=== PATIENT | female | born 1990 | race Caucasian/White ===

== ENCOUNTER 2020-12-10 21:17 | Inpatient (IN) | payer OTHER, MEDICAID, SELFPAY ==
[2020-12-10 21:55] LABS: WBC Urine None Seen (0-5/HPF)
[2020-12-10 21:58] LABS: Appearance Urine UA CLOUDY; Color Urine UA RED; Glucose Urine UA NEGATIVE (Negative); Ketones Urine UA TRACE (NEGATIVE); Leukocyte Esterase Urine UA TRACE (NEGATIVE); Nitrite Urine UA NEGATIVE (Negative); Occult Blood Urine UA 3+ (Negative); Protein Urine UA 3+ (Negative); Specific Gravity Urine UA 1.025 (1.000-1.035); Urobilinogen Urine UA 0.2 E.U./dL (0.2)
[2020-12-10 22:09] LABS: RBC Urine >100/HPF (0-5/HPF); Squamous Epithelial Cell Urine >30 /HPF (0-5/HPF)
[2020-12-10 22:10] LABS: Bacteria Urine Many (>30)
[2020-12-10 22:12] LABS: Bilirubin Urine UA Negative (NEGATIVE); Ictotest Urine Negative (Negative)
[2020-12-10 22:13] LABS: Culture Indicated Urine Cult Not Indicated
[2020-12-10 22:27] LABS: UR Morphine/Opiate cutoff 300 Positive (Negative); Ur Creatinine Normal (Normal); Ur Specific Gravity Normal (Normal); Urine Amphetamines Positive (Negative); Urine Barbiturates Negative (Negative); Urine Benzodiazepines Negative (Negative); Urine Cocaine Negative (Negative); Urine MDMA Negative (Negative); Urine Methadone Negative (Negative); Urine Methamphetamines Positive (Negative); Urine Oxycodone Negative (Negative); Urine Phencyclidine Negative (Negative); Urine Tetrahydrocannabinol Negative (Negative); Urine Tricyclic Antidepressant Negative (Negative); Urine pH Normal (Normal)
--- NOTE | 2020-12-10 22:38 | DI.US.S_ITS ---
PROCEDURE: US OB >= 14 WEEKS FETUS INDICATIONS: bleeding OUTSIDE/PRIOR DATING DATA: Last menstrual period (LMP): 03/26/2020. LMP-based estimated date of delivery (MANDEEP): 12/31/2020. First dating scan (date and location): None TECHNIQUE: Real-time scanning was performed of the fetus, with image documentation and biometric measurements. COMPARISON: None. FINDINGS: General: A single living intrauterine gestation is present. Placenta: Placental position is posterior, without previa. Amniotic fluid index: 9.8 cm, normal range is 5-24 cm. heart rate: 139 Maternal cervical canal: 3.4 cm long. Evaluation is however limited given positioning. biometrics: Biparietal diameter: 8.35, 33 weeks 4 days, this corresponds to the 1st percentile. Head circumference: 30.72, 34 weeks 2 days Abdominal circumference: 30.36, 34 weeks 2 days, this corresponds to the 5th percentile. Femur length: 6.84, 35 weeks 1 day, this corresponds to the 9th percentile. Estimated gestational age from initial scan: not applicable. Composite gestational age from present scan: 34 weeks 2 days Estimated weight and percentile: 2436 g, 6th percentile Measurement variability for biometric dating: +/- 7 days from 14 weeks to 15 weeks 6 days gestation, +/- 10 days from 16 weeks to 21 weeks 6 days gestation, +/- 2 weeks from 22 weeks to 27 weeks 6 days gestation, +/- 3 weeks for 28 weeks gestation or later. weight reference: 4500 g or EFW >90/95% is considered macrosomia or large for gestational age. EFW <10% is small for gestational age. EFW 5% or less is considered intra-uterine growth restriction. Anatomic survey: Not performed IMPRESSION: Single live intrauterine gestation with heart rate of 139 beats per minute measuring 34 weeks 2 days by today's ultrasound compared to 37 weeks 0 days by LMP. Estimated weight of 2436 g corresponding to the 6 percentile. This is considered small for gestational age. The by pyramidal diameter however is measured at the 1st percentile with the abdominal circumference measures at the 5th percentile. Limited evaluation of the cervix. No significant discrepancy of preliminary report. Dictated by: Carmine Rodriguez D.O. on 12/11/2020 at 8:01 Approved by: Carmine Rodriguez D.O. on 12/11/2020 at 8:12
--- NOTE | 2020-12-10 22:41 | PM.OBHP.1 ---
OB HPI Date/Time Date of admission: 12/10/20 Date Patient Seen: 12/10/20 Time Patient Seen: 22:42 History of Present Condition Chief complaint: EVAL OF LABOR, SWELLING LEGS : 1 Para: 0 Estimated Date of Delivery: 12/31/20 Estimated Gestational Age (weeks): 37 Narrative: Mariela Singh is a 30 year old female presented for evaluation for swelling in her legs. Appears the patient is preeclamptic. Indications Indication for induction OB: medical complication (Preeclampsia) History of Present care: limited care and initiated at week # (13) Dating criteria: based on 1st trimester US only Obstetrical complications: none Narrative: IV drug use throughout Evaluation Evaluation Baseline heart rate: 125 Variability: Average (6-10) monitor accelerations: Present monitor decelerations: Absent Contraction Frequency (minutes): 3 Uterine Contraction Intensity: Mild Category of Tracing: Reactive Status: Category l Cervical dilation (cm): 0 Cervical effacement (%): 0 station: -3 Laboratory results: Laboratory Tests 12/10/20 12/10/20 21:45 21:45 Urine Color Red Urine Appearance Cloudy Urine pH 7.0 Ur Specific Robbins 1.025 Urine Protein 3+ H Urine Glucose (UA) Negative Urine Ketones Trace H Urine Occult Blood 3+ H Urine Nitrate Negative Urine Bilirubin Negative Ur Bilirubin Confirm Negative Urine Urobilinogen 0.2 Ur Leukocyte Esterase Trace H Urine RBC >100/hpf H Urine WBC None seen Ur Squamous Epith Cells >30 /hpf H Urine Bacteria Many (>30) H Ur Culture Indicated? Cult not indicated U Opiates 300ng/mL cut Positive H Ur Oxycodone Screen Negative Urine Methadone Screen Negative Ur Barbiturates Screen Negative U Tricyclic Antidepress Negative Ur Phencyclidine Scrn Negative Ur Amphetamines Screen Positive H U Methamphetamines Scrn Positive H Ur MDMA Scrn (Ecstasy) Negative U Benzodiazepines Scrn Negative Urine Cocaine Screen Negative U Marijuana (THC) Screen Negative COUNTS INCLUDE 234 BEDS AT THE [facility] Social History (Updated 12/10/20 @ 22:51 by Nancy Marquez MD) Smoking Status: Current every day smoker substance use type: marijuana, heroin, amphetamines and methamphetamine Meds Home Medications and Allergies Allergies Allergy/AdvReac Type Severity Reaction Status Date / Time No Known Allergies Allergy Uncoded 02/26/18 13:09 Review of Systems Review of Systems Narrative: Patient denies headaches, scotomata, epigastric pain. Good movement. Patient states she had some bleeding yesterday in the bathroom after straining for a bowel movement. She had more bleeding when she went to the bathroom today. She denies leakage of fluid. No GI concerns. No bladder concerns. Patient states she last did drugs several days ago. Exam Vital Signs (past 8 hours): Blood pressure 142/97, temperature 36.2?,P 97 Narrative Exam Narrative: HEENT exam normal mask not removed at this point, lungs are clear to auscultation percussion. Heart is regular rate and rhythm no S3-S4 murmurs. Abdomen is gravid, soft, nontender. Extremities with +1 edema and nontender. DTRs are brisk. Objective Imaging US - abdomen: My impression: 2700 g female fetus, KIMBERLY 9, no placenta previa or evidence of placental separation. Labs Labs: Laboratory Results - last 24 hr 12/10/20 12/10/20 21:45 21:45 Urine Color Red Urine Appearance Cloudy Urine pH 7.0 Ur Specific Robbins 1.025 Urine Protein 3+ H Urine Glucose (UA) Negative Urine Ketones Trace H Urine Occult Blood 3+ H Urine Nitrate Negative Urine Bilirubin Negative Ur Bilirubin Confirm Negative Urine Urobilinogen 0.2 Ur Leukocyte Esterase Trace H Urine RBC >100/hpf H Urine WBC None seen Ur Squamous Epith Cells >30 /hpf H Urine Bacteria Many (>30) H Ur Culture Indicated? Cult not indicated U Opiates 300ng/mL cut Positive H Ur Oxycodone Screen Negative Urine Methadone Screen Negative Ur Barbiturates Screen Negative U Tricyclic Antidepress Negative Ur Phencyclidine Scrn Negative Ur Amphetamines Screen Positive H U Methamphetamines Scrn Positive H Ur MDMA Scrn (Ecstasy) Negative U Benzodiazepines Scrn Negative Urine Cocaine Screen Negative U Marijuana (THC) Screen Negative Assessment and Plan Assessment and Plan Assessment and Plan narrative: 30-year-old G1 EDC 10/30 at 37 weeks with poor care with drug use throughout presents with preeclampsia. We do have records of a 13 week ultrasound confirming EDC. Will admit and begin induction. Monitor for need to start magnesium. Will start oral labetalol for increased blood pressure.
[2020-12-10 23:34] LABS: COVID19 -Nasal RAPID Negative (Negative)
[2020-12-11 00:01] LABS: Add Manual Diff / Slide Review NO; Basophils Absolute Auto 0 /uL (0-100); Basophils Percent Auto 0.4 % (0-2); Eosinophils Absolute Auto 0 /uL (0-450); Eosinophils Percent Auto 0.1 % (2-4); Hematocrit 31.3 % (36-46); Hemoglobin 10.2 g/dL (12.0-16.0); Lymphocytes Absolute Auto 1800 /uL (1100-4500); Lymphocytes Percent Auto 24.6 % (25-40); Mean Corpuscular HGB Conc 32.7 % (30-36); Mean Corpuscular Hemoglobin 27.7 PG (26-34); Mean Corpuscular Volume 84.9 fL (80-100); Monocytes Absolute Auto 500 /uL (0-900); Monocytes Percent Auto 6.1 % (3-14); Neutrophils Absolute Auto 5100 /uL (1500-7000); Neutrophils Percent Auto 68.8 % (50-75); Platelet Count 240 X10^3/uL (150-400); Red Blood Cell Count 3.69 X10^6/uL (4.0-5.2); Red Cell Distribution Width 14.3 % (11.6-14.8); White Blood Cell Count 7.5 X10^3/uL (4.5-11.0)
[2020-12-11 00:11] VITALS: BP 142/97
[2020-12-11 00:19] LABS: Aspartate Aminotransferase 42 IU/L (14-36); BUN Creatinine Ratio 22.5 (6-22); Blood Urea Nitrogen 20 mg/dL (7-17); Estimated Glomerular Filt Rate > 60.0 mL/min (>60)
[2020-12-11] MEDS: LABETALOL 100 MG TABLET PO ×4 (00:33→21:27)
[2020-12-11] MEDS: LACTATED RINGERS 1,000 ML 100 ML IV (00:34)
[2020-12-11] MEDS: miSOPROStoL 25 MCG TABLET VAG ×4 (00:34→22:00)
[2020-12-11] MEDS: PENICILLIN G POTASSIUM 5,000,000 UNIT in DEXTROSE 5% IN WATER 250 ML IV (00:35)
[2020-12-11 01:39] LABS: Strep Grp B PCR NEG for Grp B Strep
[2020-12-11 01:51] LABS: Hepatitis B Surface Antigen NEGATIVE s/c (NEGATIVE)
[2020-12-11 06:48] LABS: Add Manual Diff / Slide Review NO
[2020-12-11 09:07] VITALS: BP 129/77; PULSE 76
--- NOTE | 2020-12-11 10:14 | PM.OBPNLAB ---
Date/Time Date Patient Seen: 12/11/20 Time Patient Seen: 10:14 Pain Control Pain control: tolerating well Comments: Patient denies headaches, scotomata, epigastric pain. Pelvic Exam Dilation (cm): 0 Effacement (%): 50 station: -2 Amniotic membrane status: Intact Contractions Contractions on admission: irregular Monitor mode: External Contraction intensity: Mild Status status: Category l Monitor Accelerations: Present Monitor Decelerations: Absent Monitor Variability: Moderate Assessment and Plan Assessment: induction ongoing Plan: continuous present management
[2020-12-11] MEDS: CALCIUM CARBONATE 500 MG TAB 1000 MG PO ×2 (11:00→22:44)
[2020-12-11] MEDS: METHADONE 5 MG TABLET 10 MG PO ×2 (11:00→20:58)
[2020-12-11 12:12] LABS: HIV 1 & 2 Ab/Ag 4th Gen Combo NEGATIVE (NEGATIVE)
[2020-12-11 12:48] LABS: Urine N gonorrhoeae NOT DETECTED
[2020-12-11 12:49] LABS: Urine Chlamydia NOT DETECTED
--- NOTE | 2020-12-11 14:40 | PM.OBPNLAB ---
Date/Time Date Patient Seen: 12/11/20 Time Patient Seen: 14:40 Pain Control Pain control: tolerating well Comments: Patient denies headaches, scotomata, epigastric pain. Her cramping is slightly increasing. She requested her methadone and a nicotine patch. Pelvic Exam Dilation (cm): 1 Effacement (%): 50 station: -2 Amniotic membrane status: Intact Comments: Decision was made to proceed with Pace bulb induction. The Pace bulb was introduced through the cervix and the balloon inflated with 60 cc of saline. Contractions Contractions on admission: regular Monitor mode: External Contraction frequency (min): 3 Contraction duration (min): 1 Contraction pattern: Regular Contraction intensity: Mild Status status: Category l Heart Rate Baseline: 135 Monitor Accelerations: Present Monitor Decelerations: Absent Monitor Variability: Moderate Assessment and Plan Assessment: induction ongoing Plan: other (Pace bulb placed)
[2020-12-11] MEDS: NICOTINE 14 PATCH 14 MG TOP (14:42)
--- NOTE | 2020-12-11 14:48 | CM.SWNOTE ---
Patient is a 30 year old female who was admitted to [facility] on 12/10/20 for Eval of Labor. Pt has [employer] and [employer] for insurance and her PCP is not listed. EMR was reviewed. Per , PEST CONTROL TECHNICIAN Consult ordered as pt admitted with being preeclamptic and induction of labor required and pt an active IV-DA and UDS positive for amphetamine, methamphetamine, and heroin. PEST CONTROL TECHNICIAN met bedside with MOB and her mother Johan ([phone]) and explained role and MOB confirms that she recently moved from [place] into her mother's home in preparation of more support leading up to labor and delivery. FOB is still involved but currently incarcerated and will remain incarcerated for a long time but keeps in phone contact with MOB. MOB confirms that she had limited care and only had 6 visits starting after she was already 13 weeks . MOB established with [facility] a few weeks ago and gets daily dosing there and had plans through [facility] to go to [facility] this week for their Inpt CD tx program while waiting to deliver closer to her due date which is Dec 31 2020 but then ended up being admitted to [facility] yesterday and being induced. FRANCISCO is slowly progressing in her labor but is not actively laboring yet. Mother La confirms that they recently got MOB enrolled with WIC, [employer]/food stamps and Johan has purchased all the baby equipment needed like carseat, crib, etc. La and her work multimedia authoring specialist but La will take time off work to support MOB and baby girl Fannie. PEST CONTROL TECHNICIAN discussed the need to contact CPS and make a report due to active drug use and MOB confirms that this is her first baby and denies any hx of involvement with CPS. MOB and La acknowledge understanding and state they do not have any issues or problems with likelihood of CPS SW to meet with them once baby girl delivered. La and MOB have a plan of La being the tentative guardian if needed while MOB gets tx and support and both aware that baby girl likely will be transferred for higher level of care to monitor for withdrawals and complications from drug use. PEST CONTROL TECHNICIAN called CPS [phone] and spoke to pass worker Jasvir and provided above information and he discussed that report was filed under intake id #[id number] but could not be finalized until baby girl is officially delivered. Right when baby is delivered then staff can call CPS with the intake id # and report will be screened-in and a worker assigned to investigate. PEST CONTROL TECHNICIAN updated Center RN and met bedside with Micaela again and updated on CPS report and need for baby to be delivered before further investigation can begin. FRANCISCO and Johan very appreciative and appropriate. Plan: PEST CONTROL TECHNICIAN to follow in the morning to determine if baby girl was delivered yet and if tax staff accountant called CPS with update on delivery towards likely need for CPS investigation before baby can be allowed to d/c home, although baby likely will be transferred for higher level of care after delivery. HBAVESH Bañuelos Discharge Planning/Care Management PEST CONTROL TECHNICIAN - Php Programmer Assessment Start: 12/11/20 14:30 Freq: Status: Active Protocol: Document 12/11/20 14:31 BF (Rec: 12/11/20 14:48 BF [id number]) PEST CONTROL TECHNICIAN/Php Programmer Assessment Start date 12/11/20 Visit Start Time 12:00 End date 12/11/20 Visit End Time 12:30 Total time Care Management spent on 90 min patient visit-in minutes Presenting Problem Patient admitted to Center for preeclamptia and plan of induction and current IV-drug abuse and limited care Precipitating Event(s) Daily methadone clinic and established at [facility] Patient Strengths Moved in with her supportive mother, managed carrying her baby almost to term Current Behavioral Health Provider(s) [facility] in Include Facility, Provider, Ph. # [place] Psych[facility] information & Support Pt's supportive mother is Systems bedside and willing to be the temporary guardian if needed for baby girl School/Work Denies Legal Matters - Outstanding Issues Denies
[2020-12-11 20:58] VITALS: BP 171/79; PULSE 56
[2020-12-12] MEDS: miSOPROStoL 25 MCG TABLET VAG (02:53)
[2020-12-12 06:01] LABS: Add Manual Diff / Slide Review NO; Basophils Absolute Auto 0 /uL (0-100); Basophils Percent Auto 0.3 % (0-2); Eosinophils Absolute Auto 0 /uL (0-450); Hematocrit 32.1 % (36-46); Hemoglobin 10.3 g/dL (12.0-16.0); Lymphocytes Absolute Auto 1800 /uL (1100-4500); Lymphocytes Percent Auto 15.1 % (25-40); Mean Corpuscular HGB Conc 32.3 % (30-36); Mean Corpuscular Hemoglobin 27.4 PG (26-34); Mean Corpuscular Volume 84.9 fL (80-100); Monocytes Absolute Auto 400 /uL (0-900); Monocytes Percent Auto 3.6 % (3-14); Neutrophils Absolute Auto 9900 /uL (1500-7000); Platelet Count 237 X10^3/uL (150-400); Red Blood Cell Count 3.78 X10^6/uL (4.0-5.2); Red Cell Distribution Width 14.6 % (11.6-14.8); White Blood Cell Count 12.2 X10^3/uL (4.5-11.0)
[2020-12-12 06:11] LABS: Alanine Aminotransferase 29 IU/L (<35); Albumin 2.6 g/dL (3.5-5.0); Albumin Globulin Ratio 0.8 (1.0-2.8); Alkaline Phosphatase 243 U/L (38-126); Aspartate Aminotransferase 32 IU/L (14-36); Bilirubin Total 0.2 mg/dL (0.2-1.3); Bilirubin Unconjugated 0.2 mg/dL (0.0-1.1); Globulin 3.1 g/dL (1.7-4.1); HEMOLYSIS < 15 (0-50); Total Protein 5.7 g/dL (6.3-8.2)
[2020-12-12] MEDS: OXYTOCIN PREMIX 30 UNIT/500 ML PLAST..BAG IV (07:59)
[2020-12-12] MEDS: LABETALOL 100 MG TABLET PO ×2 (08:34→21:28)
[2020-12-12] MEDS: METHADONE 5 MG TABLET 10 MG PO ×2 (08:34→21:28)
--- NOTE | 2020-12-12 10:49 | PM.OBPNLAB ---
Date/Time Date Patient Seen: 12/12/20 Time Patient Seen: 10:50 Pain Control Pain control: tolerating well Comments: Patient denies headaches, scotomata, epigastric pain. Pelvic Exam Dilation (cm): 3 Effacement (%): 60 station: -2 Amniotic membrane status: Ruptured (ARomed for clear fluid) Contractions Contractions on admission: regular Monitor mode: External Pitocin rate (mU/min): 15 Contraction frequency (min): 3 Contraction duration (min): 1 Contraction pattern: Regular Contraction intensity: Mild Status status: Category l Monitor Accelerations: Present Monitor Decelerations: Absent Monitor Variability: Moderate Assessment and Plan Assessment: induction ongoing Plan: continuous present management Comments: Patient currently on Pitocin. AROMed for clear fluid. Epidural catheter when patient requests Blood pressure were last few checks 136/84 and 122/74. Pulse of 81, temperature 36.2?. Labs are stable.
--- NOTE | 2020-12-12 17:17 | SUR.OPER ---
Supine on Padded OR bed, head on pillow, safety belt at thigh, arms secured on padded arm boards at <90 degrees abduction. Bump under right buttock. Legs uncrossed with pillow under knees, gel pad to heels, tape over blanket to lower legs.
--- NOTE | 2020-12-12 17:38 | PM.PREOP ---
Pre-operative Note COVID-19 COVID-19 status: Negative Result date/Date tested (Pos, Neg/Pending): 12/10/20 Interval Note History & Physical reviewed/Exam performed by Physician: Yes Changes to H&P: Yes H&P completed within 30 days and has changed as indicated here:: baby not tolerating labor
[2020-12-12] MEDS: CEFAZOLIN 2 GM/100 ML FROZ.PIGGY IV (17:45)
[2020-12-12] MEDS: LACTATED RINGERS 1,000 ML 100 ML IV ×2 (17:45→19:34)
--- NOTE | 2020-12-12 18:04 | SUR.OPER ---
VIABLE FEMALE INFANT DELIVERED AT 1807.CORD BLOOD AND PLACENTA TO OB WITH RN.
[2020-12-12 18:43] VITALS: BP 139/80; PULSE 62; RESP 23; O2SAT 100
[2020-12-12 18:48] VITALS: BP 126/84; PULSE 64; RESP 25; O2SAT 100
[2020-12-12 18:53] VITALS: BP 149/90; PULSE 64; RESP 24; O2SAT 100
--- NOTE | 2020-12-12 18:54 | PM.OBPNLAB ---
Date/Time Date Patient Seen: 12/12/20 Time Patient Seen: 17:10 Pain Control Pain control: tolerating well Pelvic Exam Dilation (cm): 4 Effacement (%): 100 station: -1 Amniotic membrane status: Ruptured (ARomed for clear fluid) Contractions Contractions on admission: regular Monitor mode: Internal Contraction frequency (min): 3 Contraction pattern: Regular Contraction intensity: Moderate Intrauterine tone measurement: 50 Status status: Category ll Heart Rate Baseline: 120 Monitor Accelerations: Episodic Monitor Decelerations: Periodic Monitor Variability: Moderate Comments: The heart tones decreased markedly with any increase in Pitocin to effect adequate contractions. There was not significant change in her cervix and decision was made to proceed with section. Consent form for section was reviewed with the patient. Risk of damage to internal structures such as bowel, bladder, ureters that could require additional surgery to repair. Risk of infection, bleeding that could require blood transfusion which she is agreeable to have if necessary to save her life. Risk of scar tissue that could cause pain. Reaction to anesthesia or medication that could result in or permanent or partial disability. Consent form was signed. Questions answered. Assessment and Plan Plan: ( intolerance of labor)
[2020-12-12 18:58] VITALS: BP 152/91; PULSE 64; RESP 100; O2SAT 25
--- NOTE | 2020-12-12 18:58 | P.OP_ITS ---
Operative Date/Time/Diagnoses Date of procedure: 12/12/20 Time of procedure: 18:58 Pre-op diagnosis: intolerance of labor Post-op diagnosis: same Procedure & Clinicians Procedure: Primary low-transverse section Same procedure as scheduled: Yes Indications: intolerance of labor Surgeon: Nancy Marquez Appeals Rn: Uday Slaughter Click Yes if Unassisted: No Anesthesia Type: Epidural Operative Notes Findings: Normal tubes, ovaries, and uterus. Viable female weighing 2418 gm. Apgars 9 and 9. The baby was in the OP position with a nuchal cord. Closure Type: primary Specimen(s): none sent Applied: catheter (Pace) Estimated Blood Loss (mL): 400 Blood products transfused: none Procedure in detail: The patient was brought to the operating room where she underwent bolus of her epidural for anesthesia. She was placed in a supine position with a left lateral tilt. A Pace catheter was in place. Pulsatile stockings were placed and functional throughout the case. 2 g of Ancef were given IV prior to the incision. Warming was in place. The patient was prepped and draped in usual sterile fashion. A low transverse incision was made with a scalpel and the incision was carried down to the fascial layer which was incised transversely with scissors. The sales operations assistant did his side of the incision. The midline attachments are superiorly and inferiorly. Some bleeding was controlled Bovie. The rectus muscles were in the midline and the peritoneal incision was made with no damage to internal structures. The peritoneum was incised and superiorly and inferiorly. The incision was stretched with the surgeon and sales operations assistant placing traction. Bladder blade was placed and a bladder flap was developed and the bladder held away from the lower uterine segment. An incision was made in the uterus with the scalpel and the incision was extended with stretching. The head was elevated out of the abdomen and with fundal pressure by the sales operations assistant the baby was delivered. The infant was bulb suctioned for clear fluid and handed off to the warmer. Cord blood was collected. The placenta delivered spontaneously with traction. The uterus was cleaned with clean laps. The uterine incision was closed in 2 layers of 0 chromic suture the first a running locking layer the second an imbricating layer. The sales operations assistant was helping to expose the incision. The bladder peritoneum was repaired with 2-0 Vicryl suture. The gutters were cleaned of any remaining fluids and ovaries and tubes were observed to be normal. Adequate hemostasis was noted. The perineum was closed with 2-0 Vicryl suture. The fascia layer was closed with 0 Vicryl suture with 2 stitches. The sales operations assistant repairing half the incision with helping to retract and expose the incision for the other half. The incision was irrigated and adequate hemostasis noted. The incision was closed with interrupted 3-0 Vicryl sutures and then a subcuticular stitch of 4-0 Vicryl suture. Steri-Strips were placed. The uterus was massaged to remove any clots. The patient went to recovery room in good condition. Counts of instruments and sponges were correct. Dr. Slaughter was present throughout the case to assist with retraction, fundal pressure to deliver the , and suturing half the fascia. Complications: none Post-operative Condition: stable Disposition: other ( center) Plan for aftercare: Routine post section
[2020-12-12] MEDS: fentaNYL 100 MCG/2 ML INJ IV ×2 (19:27→20:22)
[2020-12-12 21:28] VITALS: BP 164/97; PULSE 74
[2020-12-12] MEDS: KETOROLAC 30 MG/ML VIAL IV (21:47)
[2020-12-12] MEDS: OXYCODONE IR 5 MG TABLET 10 MG PO (21:47)
[2020-12-12] MEDS: ACETAMINOPHEN 325 MG TABLET 650 MG PO (21:47)
[2020-12-12] MEDS: NICOTINE 14 PATCH 14 MG TOP (21:48)
[2020-12-12] MEDS: NIFEdipine 10 MG CAPSULE PO (23:32)
[2020-12-13] MEDS: OXYCODONE IR 5 MG TABLET 10 MG PO ×3 (02:52→19:30)
[2020-12-13] MEDS: LACTATED RINGERS 1,000 ML 100 ML IV (03:44)
[2020-12-13] MEDS: ACETAMINOPHEN 325 MG TABLET 650 MG PO ×3 (03:51→19:30)
[2020-12-13] MEDS: KETOROLAC 30 MG/ML VIAL IV ×3 (03:51→16:40)
[2020-12-13 06:17] LABS: Add Manual Diff / Slide Review NO; Basophils Absolute Auto 0 /uL (0-100); Basophils Percent Auto 0.3 % (0-2); Eosinophils Absolute Auto 0 /uL (0-450); Hematocrit 32.4 % (36-46); Hemoglobin 10.2 g/dL (12.0-16.0); Lymphocytes Absolute Auto 2200 /uL (1100-4500); Lymphocytes Percent Auto 17.1 % (25-40); Mean Corpuscular HGB Conc 31.4 % (30-36); Mean Corpuscular Hemoglobin 26.8 PG (26-34); Mean Corpuscular Volume 85.3 fL (80-100); Monocytes Absolute Auto 600 /uL (0-900); Monocytes Percent Auto 4.9 % (3-14); Neutrophils Absolute Auto 10000 /uL (1500-7000); Neutrophils Percent Auto 77.7 % (50-75); Platelet Count 240 X10^3/uL (150-400); Red Cell Distribution Width 14.9 % (11.6-14.8); White Blood Cell Count 12.9 X10^3/uL (4.5-11.0)
[2020-12-13 08:12] LABS: RPR Screen Non Reactive (Non Reactive)
[2020-12-13 08:21] VITALS: BP 158/99; PULSE 116
[2020-12-13] MEDS: LABETALOL 100 MG TABLET PO (08:21)
[2020-12-13] MEDS: DOCUSATE 250 MG CAPSULE PO (08:22)
[2020-12-13] MEDS: METHADONE 5 MG TABLET 10 MG PO (08:23)
--- NOTE | 2020-12-13 09:30 | PM.OBPN.1 ---
Subjective - OB Subjective Patient comments: incisional pain and tolerating diet baby status: other (Patient states her mother says baby is doing well) [place] feeding status: other (will start pumping) Date Patient Seen: 12/13/20 Time Patient Seen: 09:34 Interval history: Patient denies headaches, scotomata, epigastric pain. She has not ambulated. Exam Vital Signs (past 8 hours): BP 158/99, P 116, temperature 98.8?- 12/13/20 08:21 Pulse Rate 116 H Blood Pressure 158/99 H Oxygen Delivery Method Room Air Narrative Exam Narrative: Abdomen is soft, nontender. Uterus is firm, at U -1, nontender. Dressing is clean, dry, intact. Mild lochia. Extremities without edema and nontender. DTRs are normal. Objective Labs Result Diagrams: 12/13/20 05:23 12/10/20 23:43 Labs: Laboratory Results - last 24 hr 12/10/20 12/13/20 23:43 05:23 WBC 12.9 H RBC 3.80 L Hgb 10.2 L Hct 32.4 L MCV 85.3 MCH 26.8 MCHC 31.4 RDW 14.9 H Plt Count 240 Neut % (Auto) 77.7 H Lymph % (Auto) 17.1 L [place] % (Auto) 4.9 Eos % (Auto) 0.0 L Baso % (Auto) 0.3 Neut # (Auto) 66079 H Lymph # (Auto) 2200 [place] # (Auto) 600 Eos # (Auto) 0 Baso # (Auto) 0 Serum VDRL Non reactive Assessment & Plan Assessment and Plan (1) Delivery by section: Status: Acute (2) Drug abuse, amphetamine type: Status: Acute (3) Methamphetamine abuse: Status: Acute Plan day: 1 plan OB: routine postop care Comments: Patient is anxious to leave the hospital, however blood pressure is not under control at this time. No other signs or symptoms of preeclampsia. well service floor worker has been contacted. Concern over patient's use of methamphetamines. Patient stated she used methamphetamines 2 days before she arrived at the hospital. Patient did say she was on methadone however her urine tox screen was negative for methadone. Time Spent With Patient Time: Total time spent is greater than 50% in coordination of care (as documented) at patient's floor/unit and/or counseling patient: Time with patient: less than 15 minutes
[2020-12-13] MEDS: NIFEdipine 30 MG TAB ER PO (09:48)
--- NOTE | 2020-12-13 15:02 | CM.SWNOTE ---
TILE PROFESSIONAL note: Received call from [employer] this afternoon. They report that they have spoken on the phone with patient and would like TILE PROFESSIONAL to provide patient with consents for outpatient follow up. Fax received. Met with patient and explained that fax had been received from [employer]. Patient confirms that she has spoken with them. Left consents with patient to read over and sign. RN updated and instructed to fax consents when completed. P: Home when stable. BHAVESH Sims
--- NOTE | 2020-12-13 16:08 | PM.OBPN.1 ---
Subjective - OB Subjective Patient comments: incisional pain, flatus present and other (Patient is feeling that she is having withdrawal symptoms) Narrative: Patient has been accepted to [facility] when she is discharged. Dr. Agarwal recommended increasing her methadone to 10 mg q.i.d. Date Patient Seen: 12/13/20 Time Patient Seen: 16:11 Interval history: Patient is ambulatory. She is urinating well. She is passing gas. She denies headaches, scotomata, epigastric pain. Exam Vital Signs (past 8 hours): - 12/13/20 08:21 Pulse Rate 116 H Blood Pressure 158/99 H Oxygen Delivery Method Room Air Narrative Exam Narrative: Abdomen is soft, nontender. Uterus is firm at U, nontender. Dressing is clean, dry, intact. Extremities without edema and nontender. Normal DTRs Objective Labs Result Diagrams: 12/13/20 05:23 12/10/20 23:43 Labs: Laboratory Results - last 24 hr 12/10/20 12/13/20 23:43 05:23 WBC 12.9 H RBC 3.80 L Hgb 10.2 L Hct 32.4 L MCV 85.3 MCH 26.8 MCHC 31.4 RDW 14.9 H Plt Count 240 Neut % (Auto) 77.7 H Lymph % (Auto) 17.1 L [place] % (Auto) 4.9 Eos % (Auto) 0.0 L Baso % (Auto) 0.3 Neut # (Auto) 13341 H Lymph # (Auto) 2200 [place] # (Auto) 600 Eos # (Auto) 0 Baso # (Auto) 0 Serum VDRL Non reactive Assessment & Plan Assessment and Plan (1) Delivery by section: Status: Acute (2) Drug abuse, amphetamine type: Status: Acute (3) Methamphetamine abuse: Status: Acute Plan day: 1 plan OB: routine postop care Comments: Plan is for patient to be discharged in a.m. if stable she will then go to [facility]. Time Spent With Patient Time: Total time spent is greater than 50% in coordination of care (as documented) at patient's floor/unit and/or counseling patient: Time with patient: less than 15 minutes
[2020-12-13 16:40] VITALS: TEMP 36.5
[2020-12-13 19:30] VITALS: TEMP 35.8
[2020-12-13 21:28] VITALS: BP 148/93; PULSE 78
[2020-12-13] MEDS: METHADONE 10 MG TABLET PO (21:28)
[2020-12-13] MEDS: LABETALOL 100 MG TABLET 200 MG PO (21:28)
[2020-12-14] MEDS: IBUPROFEN 600 MG TABLET PO ×2 (00:39→06:26)
[2020-12-14] MEDS: OXYCODONE IR 5 MG TABLET 10 MG PO ×2 (01:45→12:06)
[2020-12-14] MEDS: ACETAMINOPHEN 325 MG TABLET 650 MG PO ×2 (01:45→11:30)
--- NOTE | 2020-12-14 06:33 | PM.OBDS.1 ---
Discharge Providers Provider Date of admission: 12/10/20 21:17 Discharge Date: 12/14/20 Consults: 12/10/20 22:40 Consult to Anesthesiology Urgent Comment: Consulting Provider: Anesthesiologist Reason for consultation: Epidural Has provider been notified: No 12/11/20 03:42 Consult to ACID POLYMERIZATION OPERATOR - Divemaster Routine Comment: 37 weeks labor pt ACID POLYMERIZATION OPERATOR Consult: Substance Abuse Assess APS/CPS Crisis Referral Community [facility] Res Need 12/12/20 20:24 Consult to [employer] Routine Comment: Discharge provider: Nancy Marquez MD Summary Hospital Course Date Patient Seen: 12/14/20 Time Patient Seen: 06:33 Procedures: Prostin, Pace bulb, Pitocin induction. Epidural catheter. Primary low-transverse section. Hospital Course: Patient presented to the hospital with signs and symptoms preeclampsia. Induction was attempted to initiate delivery. The fetus did not tolerate adequate contractions so she underwent a primary low-transverse section. Patient denies headaches, scotomata, epigastric pain. She is passing gas. She is urinating and ambulating well. Baby was transferred shortly after delivery for monitoring for withdrawal symptoms. Patient was started on pumping so that she can breastfeed. Patient will go from here to [facility] for inpatient drug rehabilitation. She has been accepted by Dr. Agarwal. Peripartum Data Infant Delivery Method: Section ( intolerance of labor) Procedures: Prostin, Pace bulb, Pitocin induction, epidural catheter, of primary low-transverse section complications: none 1: Gender: Female Disposition of : other (Transferred to [facility] to be monitored for withdrawal) Discharge Diagnosis (1) Delivery by section: Status: Acute (2) Drug abuse, amphetamine type: Status: Acute (3) Methamphetamine abuse: Status: Acute Status at Discharge Cognitive/behavioral status at discharge: oriented Functional status at discharge: independent ambulation Overall status at discharge: patient is progressing back to baseline Time Spent with Patient Time attestation: Total time spent providing and/or coordinating discharge services: Time spent: Less than 30 minutes Objective Labs Result Diagrams: 12/13/20 05:23 12/14/20 06:36 Labs: Laboratory Results - last 24 hr 12/10/20 23:43 Serum VDRL Non reactive Exam Vital Signs (past 8 hours): Oxygen Delivery Method Room Air Blood pressure 140/88, pulse 69, temperature 96.9? Narrative Exam Narrative: HEENT exam within normal limits. Lungs are clear to auscultation percussion. Heart is regular rate and rhythm no S3-S4 or murmurs. Abdomen is soft, with minimal distension, nontender. Uterus is firm, U -1 with minimal tenderness. Aquacel dressing is clean, dry, intact. Mild lochia. Extremities without edema and nontender. Patient is O positive, rubella immune, she will receive the Tdap prior to discharge. Discharge Plan Discharge Plan Patient Disposition: Home Provider Discharge Comment: Patient is going to present herself to [facility] to be in their inpatient Drug rehab Unit. Patient will continue taking labetalol 200 mg b.i.d., nifedipine ER 30 mg daily. As patient will be admitted no prescriptions written. Diet/Activity/Treatments Diet: Regular Activity: Nothing in vagina or lifting over 20 lb for 6 weeks Skin/Wound/Dressing Care Report to your healthcare provider any signs of infection, such as:: chills, fever and increased pain Dressing: dressing should be removed in 1 week
[2020-12-14 06:59] LABS: Basophils Absolute Auto 100 /uL (0-100); Basophils Percent Auto 0.8 % (0-2); Eosinophils Absolute Auto 0 /uL (0-450); Eosinophils Percent Auto 0.1 % (2-4); Hematocrit 29.2 % (36-46); Hemoglobin 9.2 g/dL (12.0-16.0); Lymphocytes Absolute Auto 3000 /uL (1100-4500); Lymphocytes Percent Auto 21.3 % (25-40); Mean Corpuscular HGB Conc 31.5 % (30-36); Mean Corpuscular Volume 85.9 fL (80-100); Monocytes Absolute Auto 800 /uL (0-900); Monocytes Percent Auto 5.9 % (3-14); Neutrophils Absolute Auto 10000 /uL (1500-7000); Neutrophils Percent Auto 71.9 % (50-75); Red Cell Distribution Width 14.6 % (11.6-14.8); White Blood Cell Count 13.9 X10^3/uL (4.5-11.0)
[2020-12-14 07:01] LABS: Add Manual Diff / Slide Review SLIDE REVIEW
[2020-12-14 07:12] LABS: RBC Morphology Normal Morphology
[2020-12-14 07:13] LABS: Platelet Count 228 X10^3/uL (150-400); Platelet Estimate Adeq
[2020-12-14 07:32] LABS: Alanine Aminotransferase 28 IU/L (<35); Albumin 2.5 g/dL (3.5-5.0); Albumin Globulin Ratio 0.8 (1.0-2.8); Alkaline Phosphatase 185 U/L (38-126); Aspartate Aminotransferase 35 IU/L (14-36); BUN Creatinine Ratio 17.7 (6-22); Bilirubin Total 0.1 mg/dL (0.2-1.3); Bilirubin Unconjugated 0.1 mg/dL (0.0-1.1); Blood Urea Nitrogen 14 mg/dL (7-17); Calcium 7.9 mg/dL (8.4-10.2); Carbon Dioxide 25 mmol/L (22-32); Chloride 108 mmol/L (98-107); Estimated Glomerular Filt Rate > 60.0 mL/min (>60); Glucose 78 mg/dL (70-100); HEMOLYSIS < 15 (0-50); Potassium 4.4 mmol/L (3.4-5.1); Sodium 133 mmol/L (137-145); Total Protein 5.5 g/dL (6.3-8.2)
[2020-12-14 11:53] VITALS: BP 148/80; PULSE 75
[2020-12-14] MEDS: LABETALOL 100 MG TABLET 200 MG PO (11:53)
[2020-12-14 12:06] VITALS: TEMP 36.6
--- NOTE | 2020-12-14 12:08 | CM.DPNOTE ---
Faxed and called to verify cab transportation through [employer] [phone]. Patient was approved and a file was set up for her. Received fax confirmation. I made another call to the [employer] to let them know that patient needs to arrive at [facility] at 4 or after. I spoke to Jenn to set up the appointment and Sivakumar to adjust the time to be between 3-3:30 pm and to arrive at the Main Entrance of the hospital off of [address], closer to the Center. I scanned the transportation form the the EMR. Brittany Carmen CM Asst.
[2020-12-14] MEDS: DOCUSATE 250 MG CAPSULE PO (12:09)
--- NOTE | 2020-12-14 12:24 | CM.DPC ---
Update on Medicaid taxi transport. Claudia from [employer] left a vm saying they will be here at 2:30 pm to picking supervisor patient at front entrance off [address]. Claudia did call the [facility] and was told not to bring the patient before 4 pm. Also she has a different address for [place]: [address] [place] [address], and not [address] [place] [address]. Called Center and spoke to Gertrude to let her know the time change. Claudia's number [phone]. Brittany Carmen CM Asst.
[2020-12-14] MEDS: NICOTINE 14 PATCH 14 MG TOP (12:49)
--- NOTE | 2020-12-14 13:59 | CM.SWNOTE ---
PATTERN CHECKER Note TC from KEVON Hoang in the , mom aware and agreeable to plan of DC from and transport directly to [facility] inpatient [facility] treatment. Natalya asking about transport ? Maternal gma is currently w/ baby at [facility]. Mom has no new Rx to be filled upon DC. Requested that ROSALES Soto coordinate transport details and she kindly agreed, see notes for detail. Plan: DC from [facility] via [facility] transport to [facility] inpatient [facility] treatment JW
[2020-12-14 14:45] VITALS: BP 126/74; PULSE 75; RESP 100; TEMP 36.6
[2020-12-16 10:10] LABS: HCV Genotype 1a (.)
== END 2020-12-14 14:45 | disposition home or self-care (01) | DRG 540 ==
PROVIDERS: Admitting Provider Specialist; Referring Provider Specialist; Visit Provider Specialist
PROC: 10D00Z1 Extraction of Products of Conception, Low, Open Approach (ICD-10-PCS; CPT 59514; principal; 2020-12-12 17:30)
DX: O14.94 Unspecified pre-eclampsia, complicating childbirth (principal); O99.324 Drug use complicating childbirth; O76 Abnormality in fetal heart rate and rhythm complicating labor and delivery; F15.10 Other stimulant abuse, uncomplicated; Z3A.37 37 weeks gestation of pregnancy; Z37.0 Single live birth
CPT/HCPCS: 01967; 01968; 36415; 59050; 59514; 76811; 80053; 80055; 80076; 80305; 81001; 84450; 84550; 85025; 86850; 86900; 86901; 87081; 87389; 87491; 87522; 87591; 87635; 87653; 87902; 96360; 99222; 99238; C9803; G0379; J0690; J1885; J2274; J2540; J2590; J3010

== ENCOUNTER 2023-04-06 19:26 | Emergency (ER) | payer OTHER, MEDICAID, SELFPAY ==
--- NOTE | 2023-04-06 19:35 | PC.NURSE ---
called patient. patient is in the bathroom per significant other.
[2023-04-06 19:59] VITALS: BP 136/74; PULSE 107; RESP 18; TEMP 37; O2SAT 100; BMI 27.4
[2023-04-06 20:24] LABS: Bacteria Urine Many (>30); Culture Indicated Urine Specimen Cultured; RBC Urine None Seen (0-5/HPF); WBC Urine >100/HPF (0-5/HPF)
[2023-04-06 22:50] VITALS: BP 117/56; PULSE 95; RESP 18; O2SAT 97
--- NOTE | 2023-04-06 23:10 | ED_ITS ---
HPI - Female Genitourinary General Chief complaint: Urogenital-Female Stated complaint: Thinks poss kidney inf Time Seen by Provider: 04/06/23 23:10 Source: patient Mode of arrival: Ambulatory History of Present Illness HPI Narrative: Patient is a healthy 32-year-old female who presents with bilateral flank pain ongoing for the last 3-4 days. She says it was on the right side now it seems to be more in the left. She denies any painful frequent urination. Pain does not radiate to her abdomen. She denies fevers chills , nausea or vomiting. Related Data Previous Rx's Medication Instructions Recorded cephalexin 500 mg capsule 500 mg PO BID 7 days #14 caps 04/07/23 Allergies Allergy/AdvReac Type Severity Reaction Status Date / Time No Known Drug Allergies Allergy Verified 04/06/23 19:59 Review of Systems Review of Systems ROS Unobtainable: All systems reviewed & are unremarkable except as noted in HPI and below Patient History Medical History Pyelonephritis tobacco type: cigarettes Substance Use Type: does not use Exam Initial Vital Signs Initial Vital Signs: Vital Signs Temperature 98.6 F 04/06/23 19:59 Pulse Rate 107 H 04/06/23 19:59 Respiratory Rate 18 04/06/23 19:59 Blood Pressure 136/74 04/06/23 19:59 Pulse Oximetry 100 04/06/23 19:59 Oxygen Delivery Method Room Air 04/06/23 19:59 GENERAL: Alert well-appearing 32-year-old female HEENT: Head atraumatic,EOMI, pupils reactive, face symmetric, moist mucous membranes CARDIOVASCULAR: Regular rate and rhythm without murmurs, rubs or gallops. RESPIRATORY: Breath sounds equal bilaterally, no wheezes rales or rhonchi. ABDOMEN: Soft, nontender. Normoactive bowel sounds all 4 quadrants. No guarding or rebound. : Left CVA tenderness worse than right EXTREMITIES: Normal range of motion, no clubbing or edema. Neurovascularly intact NEUROLOGICAL: Alert and oriented x4. SKIN: Warm, dry, no laceration, no petechiae, no rashes or lesions. Course Orders Ordered: ED Orders 04/06/23 20:05 Urine Culture Stat Urine Microscopic Stat 04/06/23 22:45 CBC Auto Diff [Complete Blood Count AUTO DIFF] Stat CMP [Comprehensive Metabolic Panel] Stat Lactate (Lactic Acid) Stat Procalcitonin Stat Discontinued Medications Sodium Chloride (Normal Saline 0.9%) 1,000 mls @ 1,000 mls/hr IV BOLUS ONE Stop: 04/07/23 00:13 Last Infusion: 04/07/23 01:02 Dose: 0 mls/hr Documented By: Admin: 04/06/23 23:20 Dose: 1,000 mls/hr Documented By: JUAN Ceftriaxone Sodium 1,000 mg/ (Sodium Chloride) 100 mls @ 200 mls/hr IV NOW ONE Stop: 04/07/23 00:15 Last Infusion: 04/07/23 01:15 Dose: 0 mls/hr Documented By: Admin: 04/07/23 00:46 Dose: 200 mls/hr Documented By: JUAN Ketorolac Tromethamine (Ketorolac 30 Mg/Ml Vial) 15 mg IV NOW ONE Stop: 04/06/23 23:15 Last Admin: 04/06/23 23:20 Dose: 15 mg Documented By: JUAN Vital Signs Vital signs: Vital Signs - 8 hr 04/06/23 22:50 04/07/23 01:15 Pulse Rate 95 H 86 Respiratory Rate 18 18 Blood Pressure 117/56 L 115/74 Pulse Oximetry 97 100 Oxygen Delivery Method Room Air Room Air MDM - Female Genitourinary Lab Data 04/06/23 22:45 04/06/23 22:45 Labs: Lab Results 04/06/23 04/06/23 04/06/23 Range/Units 20:05 22:45 22:45 WBC 12.7 H (4.5-11.0) X10^3/uL RBC 3.83 L (4.0-5.2) X10^6/uL Hgb 11.8 L (12.0-16.0) g/dL Hct 34.4 L (36-46) % MCV 89.8 (80-100) fL MCH 30.7 (26-34) PG MCHC 34.2 (30-36) % RDW 13.2 (11.6-14.8) % Plt Count 318 (150-400) X10^3/uL Neut % (Auto) 81.6 H (50-75) % Lymph % (Auto) 10.2 L (25-40) % [place] % (Auto) 7.1 (3-14) % Eos % (Auto) 0.3 L (2-4) % Baso % (Auto) 0.8 (0-2) % Neut # (Auto) 09517 H (1436-1962) /uL Lymph # (Auto) 1300 (1465-7366) /uL [place] # (Auto) 900 (0-900) /uL Eos # (Auto) 0 (0-450) /uL Baso # (Auto) 100 (0-100) /uL Sodium 137 (137-145) mmol/L Potassium 3.6 (3.4-5.1) mmol/L Chloride 100 (98-107) mmol/L Carbon Dioxide 30 (22-32) mmol/L BUN 12 (7-17) mg/dL Creatinine 0.72 (0.52-1.04) mg/dL Estimated GFR > 60 (>60) mL/min BUN/Creatinine Ratio 16.7 (6-22) Glucose 129 H (70-100) mg/dL Lactate (0.7-2.1) mmol/L Calcium 8.7 (8.4-10.2) mg/dL Total Bilirubin 0.4 (0.2-1.3) mg/dL AST 16 (14-36) IU/L ALT 22 (<35) IU/L Alkaline Phosphatase 86 (38-126) U/L Total Protein 8.0 (6.3-8.2) g/dL Albumin 4.2 (3.5-5.0) g/dL Globulin 3.8 (1.7-4.1) g/dL Albumin/Globulin Ratio 1.1 (1.0-2.8) Procalcitonin 0.11 (<0.5) ng/mL Urine RBC None seen (0-5/HPF) Urine WBC >100/hpf H (0-5/HPF) Urine Bacteria Many (>30) H (None) Ur Culture Indicated? Specimen cultured 04/06/23 Range/Units 22:45 WBC (4.5-11.0) X10^3/uL RBC (4.0-5.2) X10^6/uL Hgb (12.0-16.0) g/dL Hct (36-46) % MCV (80-100) fL MCH (26-34) PG MCHC (30-36) % RDW (11.6-14.8) % Plt Count (150-400) X10^3/uL Neut % (Auto) (50-75) % Lymph % (Auto) (25-40) % [place] % (Auto) (3-14) % Eos % (Auto) (2-4) % Baso % (Auto) (0-2) % Neut # (Auto) (7573-1006) /uL Lymph # (Auto) (7078-5925) /uL [place] # (Auto) (0-900) /uL Eos # (Auto) (0-450) /uL Baso # (Auto) (0-100) /uL Sodium (137-145) mmol/L Potassium (3.4-5.1) mmol/L Chloride (98-107) mmol/L Carbon Dioxide (22-32) mmol/L BUN (7-17) mg/dL Creatinine (0.52-1.04) mg/dL Estimated GFR (>60) mL/min BUN/Creatinine Ratio (6-22) Glucose (70-100) mg/dL Lactate 0.7 (0.7-2.1) mmol/L Calcium (8.4-10.2) mg/dL Total Bilirubin (0.2-1.3) mg/dL AST (14-36) IU/L ALT (<35) IU/L Alkaline Phosphatase (38-126) U/L Total Protein (6.3-8.2) g/dL Albumin (3.5-5.0) g/dL Globulin (1.7-4.1) g/dL Albumin/Globulin Ratio (1.0-2.8) Procalcitonin (<0.5) ng/mL Urine RBC (0-5/HPF) Urine WBC (0-5/HPF) Urine Bacteria (None) Ur Culture Indicated? Point of Care Testing Test Results Negative Urine Dip Bedside Urine Glucose Negative Bedside Urine Bilirubin - Negative Bedside Urine Ketone - Negative Urine Specific Stanley 1.015 Bedside Urine Occult Blood + Bedside Urine pH 6.0 Bedside Urine Protein + 30 Bedside Urine Urobilinogen - Negative Bedside Urine Nitrite + Positive Bedside Urine Leukocytes +++ 500 Esterase MDM Narrative Medical decision making narrative: Patient is a healthy 32-year-old female with bilateral flank pain. She has nitrates in her urine and leukocytosis suggestive of pyelonephritis and UTI. She was tachycardic which she 1st arrived but she remained afebrile. She is given fluids Toradol Zofran and a dose of Rocephin in the ED. Her abdomen is relatively soft. With bilateral flank pain and no real sign of kidney stone I do not think she needs any imaging at this time. She has a history of pyelonephritis. She has no evidence of severe sepsis. Labs show leukocytosis of 12.7 with a left shift, no electrolyte abnormality no JAYLON lactate is 0.7, procalcitonin 0.11. Discharge Plan Departure Patient Disposition: Home Clinical Impression: UTI (urinary tract infection) Qualifiers: Urinary tract infection type: acute pyelonephritis Qualified Code(s): N10 - Acute pyelonephritis Instructions: DI for Kidney Infection Activity Restrictions/Additional Instructions: *You have been diagnosed with kidney infection *What to do: At this time you do have a kidney infection. Please stay hydrated take antibiotics. *Continue to take medications as directed Keflex 500 mg twice a day for 7 days *Follow up with your primary care provider in 2-3 days or call [phone] *Return to ER if you should have increasing pain, persistent vomiting not tolerating antibiotics or any new, worsening or concerning symptoms Prescriptions: New cephalexin 500 mg capsule 500 mg PO BID 7 Days Qty: 14 0RF Stand Alone Forms: Patient Portal/API
[2023-04-06] MEDS: SODIUM CHLORIDE 0.9% 1,000 ML 1000 ML IV (23:20)
[2023-04-06] MEDS: KETOROLAC 30 MG/ML VIAL 15 MG IV (23:20)
[2023-04-06 23:23] LABS: Add Manual Diff / Slide Review NO; Basophils Absolute Auto 100 /uL (0-100); Basophils Percent Auto 0.8 % (0-2); Eosinophils Absolute Auto 0 /uL (0-450); Eosinophils Percent Auto 0.3 % (2-4); Hematocrit 34.4 % (36-46); Hemoglobin 11.8 g/dL (12.0-16.0); Lymphocytes Absolute Auto 1300 /uL (1100-4500); Lymphocytes Percent Auto 10.2 % (25-40); Mean Corpuscular HGB Conc 34.2 % (30-36); Mean Corpuscular Hemoglobin 30.7 PG (26-34); Mean Corpuscular Volume 89.8 fL (80-100); Monocytes Absolute Auto 900 /uL (0-900); Monocytes Percent Auto 7.1 % (3-14); Neutrophils Absolute Auto 10400 /uL (1500-7000); Neutrophils Percent Auto 81.6 % (50-75); Platelet Count 318 X10^3/uL (150-400); Red Blood Cell Count 3.83 X10^6/uL (4.0-5.2); Red Cell Distribution Width 13.2 % (11.6-14.8); White Blood Cell Count 12.7 X10^3/uL (4.5-11.0)
[2023-04-06 23:38] LABS: Lactate (Lactic Acid) 0.7 mmol/L (0.7-2.1)
[2023-04-06 23:39] LABS: Alanine Aminotransferase 22 IU/L (<35); Albumin 4.2 g/dL (3.5-5.0); Albumin Globulin Ratio 1.1 (1.0-2.8); Alkaline Phosphatase 86 U/L (38-126); Aspartate Aminotransferase 16 IU/L (14-36); BUN Creatinine Ratio 16.7 (6-22); Bilirubin Total 0.4 mg/dL (0.2-1.3); Blood Urea Nitrogen 12 mg/dL (7-17); Calcium 8.7 mg/dL (8.4-10.2); Carbon Dioxide 30 mmol/L (22-32); Chloride 100 mmol/L (98-107); Estimated Glomerular Filt Rate > 60 mL/min (>60); Globulin 3.8 g/dL (1.7-4.1); Glucose 129 mg/dL (70-100); HEMOLYSIS < 15 (0-50); Potassium 3.6 mmol/L (3.4-5.1); Sodium 137 mmol/L (137-145)
[2023-04-06 23:56] LABS: Procalcitonin 0.11 ng/mL (<0.5)
[2023-04-07] MEDS: cefTRIAXone 1,000 MG in SODIUM CHLORIDE 0.9% 100 ML 200 MG IV (00:46)
[2023-04-07 01:15] VITALS: BP 115/74; PULSE 86; RESP 18; O2SAT 100
== END 2023-04-07 01:17 | disposition home or self-care (01) ==
PROVIDERS: Emergency Provider Emergency Medicine
DX: N10 Acute pyelonephritis (principal)
CPT/HCPCS: 36415; 80053; 81003; 81015; 81025; 83605; 84145; 85025; 87077; 87086; 87186; 96365; 96375; 99284; J0696; J1885

== ENCOUNTER 2024-04-21 19:45 | Emergency (ER) | payer OTHER, MEDICAID, SELFPAY ==
[2024-04-21 20:10] VITALS: BP 131/60; PULSE 101; RESP 16; O2SAT 98; BMI 29.8
--- NOTE | 2024-04-21 20:23 | PC.NURSE ---
Pt wound irrigated and cleaned w Gabbie. Pt and pt SO appeared to walk out of the ED lobby from triage after being told to wait to see provider.
== END 2024-04-22 00:19 | disposition left against medical advice (07) ==
PROVIDERS: Emergency Provider Emergency Medicine
CPT/HCPCS: 99281